=== PATIENT | female | born 1980 | race Caucasian/White ===

== ENCOUNTER 2018-10-17 21:59 | Inpatient (IN) | payer SELFPAY ==
[~2018-10-17] VITALS: Ht 165.1 cm; Wt 75.4 kg
[~2018-10-17 21:59] MED LIST: NOCURR
[2018-10-18 00:30] VITALS: BP 123/75
[2018-10-18] MEDS ORDERED: ZOLPIDEM TARTRATE 10 MG TABLET PO PRN (01:00)
[2018-10-18 07:15] VITALS: BP 125/75
[2018-10-18] MEDS: RisperiDONE 1 MG TABLET PO SCH ×2 (13:17→20:22)
[2018-10-19 06:35] VITALS: BP 121/63
[2018-10-19 08:05] VITALS: BP 119/76
[2018-10-19] MEDS: RisperiDONE 1 MG TABLET PO SCH ×2 (10:13→20:53)
[2018-10-20 06:22] VITALS: BP 117/75
[2018-10-20] MEDS: RisperiDONE 1 MG TABLET PO SCH ×2 (09:04→21:15)
[2018-10-20] MEDS: QUEtiapine FUMARATE 100 MG TABLET PO PRN (16:59)
[2018-10-20] MEDS: LORazepam 2 MG TABLET PO PRN (16:59)
[2018-10-20 20:30] VITALS: BP 118/68
[2018-10-21 05:50] VITALS: BP 115/75
[2018-10-21] MEDS: QUEtiapine FUMARATE 100 MG TABLET PO PRN (08:18)
[2018-10-21] MEDS: RisperiDONE 1 MG TABLET PO SCH ×2 (08:18→20:24)
[2018-10-21] MEDS: LORazepam 2 MG TABLET PO PRN (08:18)
[2018-10-21 16:02] VITALS: BP 110/64
[2018-10-22 08:00] VITALS: BP 90/66
[2018-10-22] MEDS: RisperiDONE 1 MG TABLET PO SCH ×2 (08:20→20:14)
[2018-10-22 16:03] VITALS: BP 105/59
[2018-10-23 08:12] VITALS: BP 102/58
[2018-10-23] MEDS: RisperiDONE 1 MG TABLET PO SCH ×2 (08:49→20:03)
[2018-10-23 16:03] VITALS: BP 112/65
[2018-10-24 06:43] VITALS: BP 117/69
[2018-10-24 08:08] VITALS: BP 100/69
[2018-10-24] MEDS: RisperiDONE 1 MG TABLET PO SCH ×2 (09:10→20:00)
[2018-10-24 16:00] VITALS: BP 137/64
[2018-10-24] MEDS: LORazepam 2 MG TABLET PO PRN (16:58)
[2018-10-25 08:04] VITALS: BP 116/71
[2018-10-25] MEDS: RisperiDONE 1 MG TABLET PO SCH (09:16)
[2018-10-25] MEDS ORDERED: RISP1 PO ×2 (12:20→14:32)
== END 2018-10-25 15:30 | disposition home or self-care (01) | DRG 885 ==
LOC: B3A 10-18 00:59
DX: F20.0 Paranoid schizophrenia (principal); F15.10 Other stimulant abuse, uncomplicated; R00.0 Tachycardia, unspecified; Z71.6 Tobacco abuse counseling; Z79.899 Other long term (current) drug therapy

== ENCOUNTER 2021-07-22 16:31 | Inpatient (IN) | payer MEDICAID ==
[~2021-07-22] VITALS: Ht 162.6 cm; Wt 93.2 kg
[~2021-07-22 16:31] MED LIST changes: -NOCURR; +RISP1TAB48 PO
[2021-07-22] MEDS ORDERED: LORazepam 2 MG TABLET PO PRN (21:00)
[2021-07-22] MEDS ORDERED: HALOPERIDOL 5 MG TABLET PO PRN (21:00)
[2021-07-22 21:13] VITALS: BP 119/61
[2021-07-22] MEDS ORDERED: INFLUENZA VIRUS VACCINE QVS 2021-22 (6MO+)/PF 60 MCG/0.5 ML SYRINGE IM. ONE (21:15)
[2021-07-23 01:02] VITALS: BP 110/71
[2021-07-23] MEDS ORDERED: GuaiFENesin/D-METHORPHAN [SUGAR-FREE] 200-20MG/10 ML SYRUP UDCUP PO PRN (07:15)
[2021-07-23] MEDS ORDERED: MAG HYDROX/AL HYDROX/SIMETH ES 30 ML SUSPENSION UDCUP PO PRN (07:15)
[2021-07-23] MEDS ORDERED: IBUPROFEN 400 MG TABLET PO PRN (07:15)
[2021-07-23] MEDS ORDERED: PETROLATUM,WHITE 28 GM JELLY TP PRN (07:15)
[2021-07-23] MEDS ORDERED: LOPERAMIDE HCL 2 MG CAPSULE PO PRN (07:15)
[2021-07-23] MEDS ORDERED: DOCUSATE SODIUM 100 MG CAPSULE PO PRN (07:15)
[2021-07-23] MEDS ORDERED: CloNIDine HCL 0.1 MG TABLET PO PRN (07:15)
[2021-07-23] MEDS ORDERED: ACETAMINOPHEN 325 MG TABLET PO PRN (07:15)
[2021-07-23] MEDS ORDERED: ONDANSETRON HCL 4 MG TABLET PO PRN (07:15)
[2021-07-23] MEDS ORDERED: ALBUTEROL SULFATE HFA 90 MCG/PUFF 8 GM INHALER IH PRN (07:15)
[2021-07-23] MEDS ORDERED: NICOTINE 14 MG/24 HOUR PATCH TD PRN (07:15)
[2021-07-23] MEDS ORDERED: MAGNESIUM HYDROXIDE SUSPENSION 30 ML UDCUP PO PRN (07:15)
[2021-07-23 08:05] VITALS: BP 124/72
[2021-07-23] MEDS ORDERED: LORazepam 2 MG/ML VIAL ONE (10:49)
[2021-07-23] MEDS ORDERED: DiphenhydrAMINE HCL 50 MG/ML VIAL ONE (10:49)
[2021-07-23] MEDS ORDERED: HALOPERIDOL LACTATE 5 MG/ML VIAL ONE (10:49)
[2021-07-23] MEDS ORDERED: HALOPERIDOL LACTATE 5 MG/ML VIAL IM ONE (11:00)
[2021-07-23] MEDS ORDERED: DiphenhydrAMINE HCL 50 MG/ML VIAL IM ONE (11:00)
[2021-07-23] MEDS ORDERED: LORazepam 2 MG/ML VIAL IM ONE (11:00)
[2021-07-23 16:07] VITALS: BP 111/69
[2021-07-23] MEDS: RisperiDONE 2 MG TABLET PO SCH (21:00)
[2021-07-24 00:31] VITALS: BP 108/72
[2021-07-24 08:26] VITALS: BP 111/66
[2021-07-24] MEDS: RisperiDONE 2 MG TABLET PO SCH ×2 (08:39→20:17)
[2021-07-24 16:14] VITALS: BP 123/72
[2021-07-24] MEDS: ZOLPIDEM TARTRATE 10 MG TABLET PO PRN (20:18)
[2021-07-25 00:42] VITALS: BP 113/67
[2021-07-25 08:06] LABS: BASOPHILS % (AUTO) 0.8 % (0.0-2.0); EOSINOPHILS % (AUTO) 1.6 % (1.0-6.0); HEMATOCRIT 40.6 % (36-46); HEMOGLOBIN 13.3 g/dL (12.0-16.0); LYMPHOCYTES # (AUTO) 2.4 K/uL (1.0-4.8); LYMPHOCYTES % (AUTO) 29.6 % (22.0-44.0); MEAN CORPUSCULAR HEMOGLOBIN 28.6 pg (26.0-34.0); MEAN CORPUSCULAR HGB CONC 32.9 G/dL (31.0-37.0); MEAN CORPUSCULAR VOLUME 87 fL (80-100); MONOCYTES # (AUTO) 0.5 K/uL (0.1-1.0); MONOCYTES % (AUTO) 6.7 % (2.0-9.0); NEUTROPHILS # (AUTO) 4.9 K/uL (1.8-7.7); NEUTROPHILS % (AUTO) 61.3 % (40.0-70.0); PLATELET COUNT (AUTO) 337 K/uL (150-450); RED BLOOD CELL COUNT(AUTO) 4.67 MIL/uL (4.00-5.20); RED CELL DISTRIBUTION WIDTH 15.2 % (11.5-14.5)
[2021-07-25 08:12] VITALS: BP 112/61
[2021-07-25] MEDS: RisperiDONE 2 MG TABLET PO SCH ×2 (08:26→20:09)
[2021-07-25 08:33] LABS: HEMOGLOBIN A1C 5.4 % (3.8-5.6)
[2021-07-25 08:34] LABS: APPEARANCE,URINE CLEAR (CLEAR); BILIRUBIN,URINE NEGATIVE (NEGATIVE); GLUCOSE, URINE (UA) NEGATIVE (NEGATIVE); KETONES,URINE NEGATIVE (NEGATIVE); LEUKOCYTE ESTERASE ,URINE NEGATIVE (NEGATIVE); NITRATE,URINE NEGATIVE (NEGATIVE); OCCULT BLOOD,URINE TRACE (NEGATIVE); PROTEIN,URINE NEGATIVE (NEGATIVE); UROBILINOGEN,URINE 0.2 mg/dL (<=1.0)
[2021-07-25 08:38] LABS: AMPHET/METH SCREEN,URINE NEGATIVE (NEGATIVE); BARBITURATE SCREEN, URINE NEGATIVE (NEGATIVE); BENZODIAZEPINES SCREEN,URINE NEGATIVE (NEGATIVE); CANNABINOID SCREEN,URINE NEGATIVE (NEGATIVE); COCAINE SCREEN,URINE NEGATIVE (NEGATIVE); METHADONE SCREEN, URINE NEGATIVE (NEGATIVE); OPIATE SCREEN,URINE NEGATIVE (NEGATIVE)
[2021-07-25 08:39] LABS: PHENCYCLIDINE SCREEN,URINE NEGATIVE (NEGATIVE)
[2021-07-25 08:40] LABS: BACTERIA,URINE None Seen /HPF (None Seen); RBC,URINE 0-2 /HPF (0-2); SQUAMOUS EPITHELIAL CELL,UR Moderate /LPF (None Seen); WBC,URINE None Seen /HPF (0-5)
[2021-07-25 08:45] LABS: ALANINE AMINOTRANSFERASE 65 U/L (12-78); ALBUMIN 3.4 g/dL (3.4-5.0); ALKALINE PHOSPHATASE 55 U/L (46-116); ANION GAP 6 mmol/L (8-16); ASPARTATE AMINOTRANSFERASE 18 U/L (15-37); BILIRUBIN,TOTAL 0.3 mg/dL (0.1-1.0); CALCIUM, TOTAL 8.6 mg/dL (8.8-10.5); CARBON DIOXIDE 27 mmol/L (22-29); CHLORIDE 104 mmol/L (98-107); CHOL/HDL RATIO 5.6 (3.9-5.7); CHOLESTEROL 206 mg/dL (131-200); CREATININE 0.64 mg/dL (0.60-1.30); GLOMERULAR FILTR. RATE CALC > 60 mL/min (>60); GLUCOSE,RANDOM 99 mg/dL (70-110); HDL CHOLESTEROL 37 mg/dL (40-60); LDL CHOL (CALC.) 152 mg/dL (0-130); POTASSIUM 4.3 mmol/L (3.5-5.1); SODIUM SERUM 137 mmol/L (136-145); THYROID STIMULATING HORMONE 6.07 uIU/mL (0.36-3.74); TRIGLYCERIDES 87 mg/dL (15-150); UREA NITROGEN, BLOOD 12 mg/dL (7-18)
[2021-07-25 16:10] VITALS: BP 115/65
[2021-07-25] MEDS: ZOLPIDEM TARTRATE 10 MG TABLET PO PRN (20:09)
[2021-07-26 06:31] VITALS: BP 112/62
[2021-07-26] MEDS: RisperiDONE 2 MG TABLET PO SCH (08:00)
[2021-07-26 08:20] VITALS: BP 115/70
[2021-07-26] MEDS ORDERED: RISP2TAB76 PO (11:48)
== END 2021-07-26 15:01 | disposition home or self-care (01) | DRG 750 ==
LOC: B3A 20:58
PROVIDERS: ADMIT Psychiatry & Neurology Child & Adolescent Psychiatry; ATTEND Psychiatry & Neurology Child & Adolescent Psychiatry
DX: F20.0 Paranoid schizophrenia (principal); E66.9 Obesity, unspecified; E78.5 Hyperlipidemia, unspecified; F41.9 Anxiety disorder, unspecified; F19.10 Other psychoactive substance abuse, uncomplicated; Z71.51 Drug abuse counseling and surveillance of drug abuser; Z68.35 Body mass index [BMI] 35.0-35.9, adult
CPT/HCPCS: 80053; 80061; 80307; 81001; 83036; 84443; 85025; 87081; J1200; J1630; J2060

== ENCOUNTER 2022-01-15 11:06 | Emergency (ER) | payer MEDICAID ==
[~2022-01-15] VITALS: Ht 160 cm; Wt 95.0 kg
[~2022-01-15 11:06] MED LIST changes: -RISP1TAB48 PO; +RISP2TAB76 PO
[2022-01-15] MEDS ORDERED: ACETAMINOPHEN 500 MG TABLET PO ONE (11:45)
[2022-01-15 12:30] VITALS: BP 125/71
== END 2022-01-15 12:39 | disposition home or self-care (01) ==
LOC: EMS 11:06
DX: H60.93 Unspecified otitis externa, bilateral (principal)
CPT/HCPCS: 99283